=== PATIENT | male | born 1955 | race Asian ===

== ENCOUNTER → 2023-07-01 | Outpatient (CLI) | payer OTHER ==
[2023-07-02 12:48] LABS: Stool Occult Bld Immuno 1 Negative (NEGATIVE)
== END ==
LOC: LAB 08:30 → LAB SHORT 08:30
PROVIDERS: Physician Assistant
DX: Z12.11 Encounter for screening for malignant neoplasm of colon (principal)
CPT/HCPCS: G0328

== ENCOUNTER → 2025-01-04 | Outpatient (CLI) | payer OTHER ==
[2025-01-05 08:48] LABS: Stool Occult Bld Immuno 1 Negative (NEGATIVE)
== END ==
LOC: LAB 09:30 → LAB SHORT 09:30
PROVIDERS: Physician Assistant
DX: Z12.11 Encounter for screening for malignant neoplasm of colon (principal)
CPT/HCPCS: G0328